=== PATIENT | female | born 1985 | race Caucasian/White ===

== ENCOUNTER → 2017-06-27 | Outpatient (CLI) | payer OTHER ==
--- NOTE | 2017-06-27 18:07 | US ---
EXAMINATION TYPE: US thyroid st tissue head/neck DATE OF EXAM: 06/27/2017 COMPARISON: 08/04/2015 CLINICAL HISTORY: E04.9 Thyroid Enlargement. GLAND SIZE: Right Lobe: 6.3 x 1.8 x 2.2 cm Overall Parenchyma: homogenous Left Lobe: 5.6 x 1.2 x 2.1 cm Overall Parenchyma: homogeneous Isthmus Thickness: 0.5 cm NODULES RIGHT: # of nodules measured on right: 3 1. 1.0 X 1.0 x 0.6 cm isoechoic nodule at the upper pole with well-defined margins; . This nodule is wider than tall and shows no intranodular vascularity. Prior size: 0.7 x 0.5 x 1.1 cm 2. 0.6 X 0.6 x 0.4 cm mixed nodule at the mid/lateral pole with well-defined margins; . This nodule is wider than tall and shows no intranodular vascularity. Prior size: 0.6 x 0.4 x 0.6 cm 3. 0.6 X 0.6 x 0.5 cm isoechoic nodule at the lower pole with well-defined margins; . This nodule is wider than tall and shows no intranodular vascularity. Prior size: no prior LEFT: # of nodules measured on left: 1. 0.3 X 0.6 x 0.4 cm echogenic nodule at the medial pole with well-defined margins; . This nodul e is wider than tall and shows no intranodular vascularity. Prior size: no prior prior nodule not well defined today looks diffuse not measured ISTHMUS: # of nodules measured in the isthmus: 0 1Bilateral neck scanned, no evidence of lymphadenopathy. IMPRESSION: Findings consistent with multinodular goiter. No dominant thyroid mass. No adverse change compared to old exam overall.
== END | disposition home or self-care (01) ==
LOC: RADUSWWP 17:04
PROVIDERS: ATTEND Family Medicine
DX: E04.9 Nontoxic goiter, unspecified (principal); Z88.5 Allergy status to narcotic agent
CPT/HCPCS: 76536

== ENCOUNTER 2017-08-23 23:00 | Emergency (ER) | payer OTHER ==
[2017-08-23] MEDS ORDERED: SODIUM CHLORIDE 0.9% 1,000 ML IV STA ×2 (23:22)
[2017-08-23] MEDS ORDERED: ONDANSETRON 4 MG/2 ML VIAL IVP STA (23:40)
[2017-08-23] MEDS ORDERED: KETOROLAC 30 MG/ML 1 ML VIAL IVP STA (23:40)
[2017-08-23 23:56] LABS: Appearance,Urine Clear (Clear); Bilirubin,Urine Negative (Negative); Blood,Urine Trace (Negative); Color,Urine Yellow; Glucose,Urine (UA) Negative (Negative); Ketones,Urine Negative (Negative); Leukocyte Esterase,Urine Negative (Negative); Mucus,Urine Rare /hpf; Nitrite,Urine Negative (Negative); PH, Urine 6.5 (5.0-8.0); Protein,Urine Negative (Negative); RBC,Urine 2 /hpf (0-5); Specific Gravity,Urine 1.007 (1.001-1.035); Squamous Epithelial Cell,Urine 2 /hpf (0-4); Urobilinogen,Urine <2.0 mg/dL (<2.0); WBC,Urine 1 /hpf (0-5)
[2017-08-24 00:03] LABS: Basophils % (A) 1 %; Eosinophils % (A) 1 %; HCT 43.2 % (34.0-46.0); Lymphocytes # (A) 1.2 k/uL (1.0-4.8); Lymphocytes % (A) 37 %; MCHC 34.7 g/dL (31.0-37.0); MCV 86.5 fL (80.0-100.0); Mean Platelet Volume 8.8; Monocytes # (A) 0.2 k/uL (0-1.0); Monocytes % (A) 6 %; Neutrophils # (A) 1.7 k/uL (1.3-7.7); Neutrophils % (A) 52 %; Platelet Count 159 k/uL (150-450); RDW 12.5 % (11.5-15.5); WBC 3.2 k/uL (3.8-10.6)
[2017-08-24 00:08] LABS: ALT 30 U/L (9-52); AST 29 U/L (14-36); Albumin 4.7 g/dL (3.5-5.0); Alkaline Phosphatase 85 U/L (38-126); Amylase 56 U/L (30-110); Anion Gap 12 mmol/L; Blood Urea Nitrogen 6 mg/dL (7-17); Calcium 9.8 mg/dL (8.4-10.2); Carbon Dioxide 31 mmol/L (22-30); Chloride 96 mmol/L (98-107); Glucose 105 mg/dL (74-99); Lipase 97 U/L (23-300); Potassium 3.3 mmol/L (3.5-5.1); Sodium 139 mmol/L (137-145); Total Bilirubin 0.4 mg/dL (0.2-1.3)
[2017-08-24 00:46] LABS: HCG,Qualitative Serum Not Detected
--- NOTE | 2017-08-24 01:14 | XR ---
EXAMINATION TYPE: XR KUB DATE OF EXAM: 08/24/2017 COMPARISON: 06/04/2011 HISTORY: Pain TECHNIQUE: 2 views FINDINGS: There is no sign of intestinal obstruction or pneumoperitoneum. Fecal pattern is normal. Leta ng bases are clear. There are no pathologic calcification. IMPRESSION: Nonacute abdomen. No change.
[2017-08-24] MEDS ORDERED: RX INFO: IV CONTRAST WAS GIVEN 1 EACH MISC MISCELLANE PRN (01:23)
--- NOTE | 2017-08-24 02:03 | ED ---
Abdominal Pain HPI - General Chief Complaint: Abdominal Pain Stated Complaint: Abd/Back Pain Time Seen by Provider: 08/23/17 23:10 Source: patient, RN notes reviewed, old records reviewed Mode of arrival: ambulatory Limitations: no limitations - History of Present Illness Initial Comments: 32-year-old feel presents a history of multiple days of diarrhea, right lower quadrant abdominal pain, fever or chills. She also reports that the pain rates towards her back. Denies chest pain or shortness of breath. No nausea or vomiting. She denies any abnormal vaginal bleeding. Denies any dysuria or hematuria. She states that she initially thought she may have had a urinary tract infection, and she took at home her analysis which was negative. - Related Data Home Medications Medication Instructions Recorded Confirmed Aspirin/Acetaminophen/Caffeine 1 - 2 tab PO Q6H PRN 08/23/17 08/23/17 [Excedrin Migraine Caplet] Previous Rx's Medication Instructions Recorded Loperamide [Imodium] 2 mg PO QID #15 capsule 08/24/17 Ondansetron Odt [Zofran Odt] 4 mg PO Q8HR PRN #15 tab 08/24/17 Allergies Allergy/AdvReac Type Severity Reaction Status Date / Time meperidine HCl [From Demerol] Allergy Vomiting Verified 08/23/17 23:14 Review of Systems ROS Statement: Those systems with pertinent positive or pertinent negative responses have been documented in the HPI. ROS Other: All systems not noted in ROS Statement are negative. Past Medical History Past Medical History: No Reported History Additional Past Medical History / Comment(s): migraines History of Any Multi-Drug Resistant Organisms: None Reported Past Surgical History: Section, Orthopedic Surgery Additional Past Surgical History / Comment(s): surgery lt ankle, wisdom teeth, cyst removal. Past Anesthesia/Blood Transfusion Reactions: No Reported Reaction Past Psychological History: Anxiety Smoking Status: Current every day smoker Past Alcohol Use History: Occasional Past Drug Use History: None Reported - Past Family History Brother(s) Family Medical History: Cancer, Thyroid Disorder Additional Family Medical History / Comment(s): testicular Mother Family Medical History: Diabetes Mellitus, Thyroid Disorder General Exam - General Exam Comments Initial Comments: 32-year-old female. No acute distress. Limitations: no limitations General appearance: alert, in no apparent distress Head exam: Present: atraumatic, normocephalic, normal inspection Eye exam: Present: normal appearance, PERRL, EOMI. Absent: scleral icterus, conjunctival injection, periorbital swelling ENT exam: Present: normal exam, mucous membranes moist Neck exam: Present: normal inspection. Absent: tenderness, meningismus, lymphadenopathy Respiratory exam: Present: normal lung sounds bilaterally. Absent: respiratory distress, wheezes, rales, rhonchi, stridor Cardiovascular Exam: Present: regular rate, normal rhythm, normal heart sounds. Absent: systolic murmur, diastolic murmur, rubs, gallop, clicks GI/Abdominal exam: Present: soft, tenderness (Right lower quadrant tenderness), normal bowel sounds. Absent: distended, guarding, rebound, rigid Extremities exam: Present: normal inspection, full ROM, normal capillary refill. Absent: tenderness, pedal edema, joint swelling, calf tenderness Back exam: Present: normal inspection Neurological exam: Present: alert, oriented X3, CN II-XII intact Psychiatric exam: Present: normal affect, normal mood Course Vital Signs 08/23/17 08/24/17 23:03 03:22 Temperature 98.3 F 98 F Pulse Rate 93 86 Respiratory 18 20 Rate Blood Pressure 135/87 116/77 O2 Sat by Pulse 100 98 Oximetry Medical Decision Making - Medical Decision Making This patient is a 32-year-old female chief complaint of right lower quadrant abdominal pain, diarrhea. She states she's also had fevers and chills. No fever at this time. Patient is given IV fluids and lab work obtained. Patient' s labwork was reviewed and unremarkable. Given her tenderness we did do a CT. CT was negative for any significant abnormalities. Normal appendix. She does have a left ovarian cyst. This. Tylenol. The patient for gastroenteritis symptoms. Discharged with antidiarrheal medication and nausea medicine. Patient understands treatment plan will comply. Return parameters were discussed. - Lab Data Result diagrams: 08/23/17 23:35 08/23/17 23:35 Lab Results 08/23/17 08/23/17 08/23/17 Range/Units 23:35 23:35 23:35 WBC 3.2 L (3.8-10.6) k/uL RBC 5.00 (3.80-5.40) m/uL Hgb 15.0 (11.4-16.0) gm/dL Hct 43.2 (34.0-46.0) % MCV 86.5 (80.0-100.0) fL MCH 30.0 (25.0-35.0) pg MCHC 34.7 (31.0-37.0) g/dL RDW 12.5 (11.5-15.5) % Plt Count 159 (150-450) k/uL Neutrophils % 52 % Lymphocytes % 37 % Monocytes % 6 % Eosinophils % 1 % Basophils % 1 % Neutrophils # 1.7 (1.3-7.7) k/uL Lymphocytes # 1.2 (1.0-4.8) k/uL Monocytes # 0.2 (0-1.0) k/uL Eosinophils # 0.0 (0-0.7) k/uL Basophils # 0.0 (0-0.2) k/uL Sodium 139 (137-145) mmol/L Potassium 3.3 L (3.5-5.1) mmol/L Chloride 96 L (98-107) mmol/L Carbon Dioxide 31 H (22-30) mmol/L Anion Gap 12 mmol/L BUN 6 L (7-17) mg/dL Creatinine 0.70 (0.52-1.04) mg/dL Est GFR (CKD-EPI)AfAm >90 (>60 ml/min/1.73 sqM) Est GFR (CKD-EPI)NonAf >90 (>60 ml/min/1.73 sqM) Glucose 105 H (74-99) mg/dL Calcium 9.8 (8.4-10.2) mg/dL Total Bilirubin 0.4 (0.2-1.3) mg/dL AST 29 (14-36) U/L ALT 30 (9-52) U/L Alkaline Phosphatase 85 (38-126) U/L Total Protein 8.0 (6.3-8.2) g/dL Albumin 4.7 (3.5-5.0) g/dL Amylase 56 (30-110) U/L Lipase 97 (23-300) U/L HCG, Qual Not Detected Urine Color Yellow Urine Appearance Clear (Clear) Urine pH 6.5 (5.0-8.0) Ur Specific [place] 1.007 (1.001-1.035) Urine Protein Negative (Negative) Urine Glucose (UA) Negative (Negative) Urine Ketones Negative (Negative) Urine Blood Trace H (Negative) Urine Nitrite Negative (Negative) Urine Bilirubin Negative (Negative) Urine Urobilinogen <2.0 (<2.0) mg/dL Ur Leukocyte Esterase Negative (Negative) Urine RBC 2 (0-5) /hpf Urine WBC 1 (0-5) /hpf Ur Squamous Epith Cells 2 (0-4) /hpf Urine Mucus Rare H (None) /hpf - Radiology Data Radiology results: report reviewed CT shows evidence of a left ovarian cyst. Otherwise negative computed tomography scan of the abdomen and pelvis. Borderline splenomegaly. Normal appendix noted. This was read by Dr. Youssef. Disposition Clinical Impression: Left ovarian cyst, Diarrhea Disposition: HOME SELF-CARE Condition: Good Instructions: Ovarian Cyst (ED) Additional Instructions: Patient advised to follow-up with primary care provider. Return to the emergency department if any alarming signs or symptoms occur. Prescriptions: Loperamide [Imodium] 2 mg PO QID #15 capsule Ondansetron Odt [Zofran Odt] 4 mg PO Q8HR PRN #15 tab PRN Reason: Nausea Referrals: Sunny Quintero MD [Primary Care Provider] - 1-2 days Time of Disposition: 02:53
--- NOTE | 2017-08-24 02:22 | CT ---
EXAMINATION TYPE: CT abdomen pelvis w con DATE OF EXAM: 08/24/2017 COMPARISON: NONE HISTORY: abdomen and back pain CT DLP: [id number] mGycm Automated exposure control for dose reduction was used. TECHNIQUE: Helical acquisition of images was performed from the lung bases through the pelvis. CONTRAST: Performed without Oral Contrast and with IV Contrast, patient injected with 100 mL of Isovue 300. FINDINGS: Lung bases are clear. There is no pleural effusion. Heart size is normal. Liver appears normal. Bile ducts are not dilated. Gallbladder appears normal. There is no pancreatic mass. Spleen is top normal in size. There is no adrenal mass. Kidneys show satisfactory contrast opacification. There is no hydronephrosi s. There is no retroperitoneal adenopathy. There is no ascites. Appendix appears normal. There is a 2 cm cyst on the left ovary. Uterus is anteverted. There is no sign of free air. There is no ascites. The bony structures are intact. I see no intestinal wall thickening. There are no dilated loops. IMPRESSION: LEFT OVARIAN CYST. OTHERWISE NEGATIVE CT SCAN OF THE ABDOMEN AND PELVIS. BORDERLINE SPLENOMEGALY. NOR MAL APPENDIX.
[2017-08-24] MEDS ORDERED: ACET/COD 300 MG/30 MG STARTER PACK 6 TAB BTL PO STA (02:56)
[2017-08-24 03:24] VITALS: BP 116/77; PULSE 86; RESP 20; TEMP 98
== END 2017-08-24 03:24 | disposition home or self-care (01) ==
LOC: EC 23:00
DX: N83.202 Unspecified ovarian cyst, left side (principal); R19.7 Diarrhea, unspecified; F17.200 Nicotine dependence, unspecified, uncomplicated; Z88.5 Allergy status to narcotic agent
CPT/HCPCS: 36415; 80053; 82150; 83690; 85025; 81001; 84703; 74018; 74177; 99285; 96374; 96375; 96361 ×4; J2405; J1885; Q9967

== ENCOUNTER → 2017-09-04 | Outpatient (CLI) | payer OTHER ==
--- NOTE | 2017-09-05 09:42 | NM ---
EXAMINATION TYPE: NM thyroid image w uptake DATE OF EXAM: 09/05/2017 COMPARISON: Thyroid ultrasound 06/27/2017 HISTORY: 32-year-old female with thyroid nodule. Patient reports various symptoms including thyroid s welling, sweating, or changes, decreased appetite and weight, irritability, fatigue, and palpitations . TECHNIQUE: Thyroid iodine uptake is calculated and images performed after the oral administration of 309 uCi 1-123 Capsule. FINDINGS: There is a subtle cold defect along the upper pole of the right thyroid lobe at the expected location of the patient's 1.0 cm nodule seen on ultrasound. Otherwise, there is normal distribution of activity throughout the gland. The 4 hour iodine uptake is calculated at 15.2% (normal range 8-14%). The 24-hour iodine uptake is ca lculated at 38.1% (normal range 15-35%). IMPRESSION: 1. Aside from a subtle cold nodule in the right upper pole, there is relatively homogeneous distribut ion of activity throughout the gland. There is no focal hyperfunctioning nodule. 2. Mildly elevated iodine uptake suggests hyperthyroidism. Correlate with TFTs.
== END | disposition home or self-care (01) ==
LOC: RADNMMAIN 08:55
PROVIDERS: ATTEND Family Medicine
DX: E04.1 Nontoxic single thyroid nodule (principal); Z88.5 Allergy status to narcotic agent
CPT/HCPCS: 78014; A9516

== ENCOUNTER → 2017-09-05 | Outpatient (CLI) | payer OTHER ==
--- NOTE | 2017-09-05 10:43 | US ---
EXAMINATION TYPE: US gallbladder DATE OF EXAM: 09/05/2017 COMPARISON: CT abdomen pelvis August 24, 2017. CLINICAL HISTORY: R10.11 Ruq Pain, R19.7 Diarrhea. 20 pound weight loss, no appetite EXAM MEASUREMENTS: Liver Length: 17.3 cm Gallbladder Wall: 0.1 cm CBD: 0.3 cm Right Kidney: 12.2 x 4.0 x 5.5 cm Pancreas: head Obscured by bowel gas Liver: wnl Gallbladder: No stones seen, contracted Evidence for sonographic Hollins's sign: no CBD: wnl Right Kidney: No hydronephrosis or masses seen IMPRESSION: No gallstones or ultrasound evidence for acute cholecystitis.
== END | disposition home or self-care (01) ==
LOC: RADUSMAIN 07:48
PROVIDERS: ATTEND Family Medicine
DX: R19.7 Diarrhea, unspecified (principal); R10.11 Right upper quadrant pain; Z88.5 Allergy status to narcotic agent
CPT/HCPCS: 76705

== ENCOUNTER → 2017-09-09 | Outpatient (CLI) | payer OTHER ==
--- NOTE | 2017-09-09 09:40 | FL ---
EXAMINATION TYPE: FL UGI air w small bowel DATE OF EXAM: 09/09/2017 COMPARISON: 08/24/2018 HISTORY: Unexplained weight loss and diarrhea. TECHNIQUE: A double contrast UGI study is performed with small bowel follow through. FLUORO TIME 3 M IN 25. 61 fluoroscopic images were saved. FINDINGS: Procedures Rn image of the abdomen shows no gross abnormality. The esophagus shows normal motility and emptying into the stomach. No evidence of hiatal hernia or s tricture noted. The stomach shows normal distensibility, peristalsis, and mucosal folds. No evidence of any mass or ulcer disease. No significant esophageal reflux was seen during real time performance of this study. The duodenal bulb and sweep are unremarkable. The small bowel study shows decreased transit to the colon in less than 20 minutes. There is normal mucosal fold pattern throughout the small bowel. There is no evidence of any stricture or filling de fect noted. The terminal ileum is unremarkable. IMPRESSION: 1. Decreased small bowel to colonic transit time with contrast reaching the colon in less than 20 min utes suggesting hyperactive motility disorder. 2. Unremarkable upper GI portion of the examination with no evidence of hiatal hernia, stricture, ulc eration, or gastroesophageal reflux. 3. No evidence of reversal of small bowel fold pattern or obstruction.
== END | disposition home or self-care (01) ==
LOC: RADFLMAIN 08:00
PROVIDERS: ATTEND Family Medicine
DX: R19.7 Diarrhea, unspecified (principal); R93.3 Abnormal findings on diagnostic imaging of other parts of digestive tract; R10.84 Generalized abdominal pain; Z88.8 Allergy status to other drugs, medicaments and biological substances
CPT/HCPCS: 74249

== ENCOUNTER → 2017-10-24 | Outpatient (CLI) | payer OTHER ==
--- NOTE | 2017-10-24 15:34 | US ---
EXAMINATION TYPE: US pelvic complete DATE OF EXAM: 10/24/2017 COMPARISON: CT abdomen and pelvis August 24, 2017 and US CLINICAL HISTORY: N92.0 Menorrhagia. Pt states very heavy menses x 1 1/2 years TECHNIQUE: Transabdominal (TA). Date of LMP: 10/12/2017 EXAM MEASUREMENTS: Uterus: 8.8 x 3.6 x 4.4 cm Endometrial Stripe: 1.0 cm Right Ovary: 3.5 x 3.2 x 4.0 cm Left Ovary: 2.2 x 1.9 x 2.0 cm 1. Uterus: Anteverted Heterogeneous 2. Endometrium: ?thickened for pt's cycle 3. Right Ovary: Cyst with septation= 2.7 x 2.7 x 2.0 cm 4. Left Ovary: wnl 5. Bilateral Adnexa: wnl 6. Posterior cul-de-sac: wnl Transabdominal ultrasound shows endometrium measuring up to 10 mm, thickened for proliferative phase of menstrual cycle. Technologist llamas 2.7 cm cyst with thin septa within the right ovary. No suspici ous nodularity or vascularity is present. IMPRESSION: Suboptimal study without transvaginal pelvic ultrasound performed. Endometrial stripe is abnormally thickened for proliferative phase of menstrual cycle.
== END | disposition home or self-care (01) ==
LOC: RADUSWWP 15:06
PROVIDERS: ATTEND Obstetrics & Gynecology
DX: R92.8 Other abnormal and inconclusive findings on diagnostic imaging of breast (principal); N92.0 Excessive and frequent menstruation with regular cycle
CPT/HCPCS: 76856

== ENCOUNTER 2017-11-28 06:12 | Day surgery (SDC) | payer OTHER ==
[2017-11-27 08:18] VITALS: BMI 21.1
--- NOTE | 2017-11-27 19:58 | P.HPOB ---
History of Present Illness H&P Date: 11/27/17 Chief Complaint: Menorrhagia This is a 32-year-old female 4 para 3 who presents for dilation and curettage with hysteroscopy and NovaSure endometrial ablation for menorrhagia. Her menses are occurring every 28 days and lasting 10-14 days. She has to change a tampon every hour for the first 4 days. She would like definitive surgical treatment to control her bleeding problem. She has had a tubal ligation. Obstetrical history: . History of 3 deliveries. One miscarriage. Gynecologic history: No history of sexual transmitted diseases. 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 Review of Systems Constitutional: Reports fatigue, Denies chills, Denies fever Eyes: denies blurred vision, denies pain Ears, nose, mouth and throat: Denies headache, Denies sore throat Cardiovascular: Denies chest pain, Denies shortness of breath Respiratory: Denies cough Gastrointestinal: Reports abdominal pain, Reports diarrhea Genitourinary: Reports menorrhagia Menstruation: Reports menses variable, Reports period heavy Musculoskeletal: Denies myalgias Integumentary: Denies pruritus, Denies rash Neurological: Reports headaches Psychiatric: Reports anxiety, Reports irritability, Reports mood swings Endocrine: Denies fatigue Past Medical History Additional Past Medical History / Comment(s): migraines, IBS, thyroid multinodular goiter, euthyroid History of Any Multi-Drug Resistant Organisms: None Reported Past Surgical History: Section, Orthopedic Surgery, Tubal Ligation Additional Past Surgical History / Comment(s): surgery lt ankle, wisdom teeth, lt wrist cyst removal. colonoscopy Past Anesthesia/Blood Transfusion Reactions: No Reported Reaction Past Psychological History: Anxiety Smoking Status: Current every day smoker Past Alcohol Use History: Occasional Past Drug Use History: None Reported - Past Family History Brother(s) Family Medical History: Cancer, Thyroid Disorder Additional Family Medical History / Comment(s): testicular Mother Family Medical History: Diabetes Mellitus, Thyroid Disorder Medications and Allergies Home Medications Medication Instructions Recorded Confirmed Type Dicyclomine [Bentyl] 10 mg PO QID PRN 11/27/17 11/27/17 History FLUoxetine HCL [PROzac] 10 mg PO QAM 11/27/17 11/27/17 History Allergies Allergy/AdvReac Type Severity Reaction Status Date / Time meperidine HCl [From Demerol] Allergy Vomiting Verified 11/27/17 08:09 Exam Osteopathic Statement: *. No significant issues noted on an osteopathic structural exam other than those noted in the History and Physical/Consult. - Vital Signs Vital signs: Intake and Output 11/27/17 11/27/17 11/27/17 06:59 14:59 22:59 Other: Weight 59.421 kg HEENT: Within normal limits Heart: Regular rate and rhythm Lungs: Clear to auscultation bilaterally Abdomen: Soft, nontender Pelvic exam: Cervix is multiparous. Uterus is retroverted with first-degree prolapse and no adnexal masses are palpated. Extremities: Negative Homans Assessment and Plan (1) Menorrhagia Status: Acute Code(s): N92.0 - EXCESSIVE AND FREQUENT MENSTRUATION WITH REGULAR CYCLE SNOMED Code(s): 584830514 Plan: Proceed with dilation and curettage and hysteroscopy with NovaSure endometrial ablation. I have discussed the risks, benefits, and alternative therapies for the above- mentioned procedure and for both sedation/anesthesia as well as necessary blood products administration, if indicated, as they pertain to this patient. The patient has indicated her understanding and acceptance of the risks and procedures discussed.
[~2017-11-28 06:12] MED LIST: DEXAMETHASONE SOD PHOSPHATE 10 MG/ML 1 ML VIAL IV ONE; LACTATED RINGERS 1,000 ML IV SCH; ONDANSETRON 4 MG/2 ML VIAL IVP ONE
[2017-11-28] MEDS ORDERED: LIDOCAINE 1% 20 ML VIAL (10MG/ML) FOR IV START INTRADERMA ONE (06:55)
[2017-11-28] MEDS ORDERED: ONDANSETRON 4 MG/2 ML VIAL ONE (06:57)
[2017-11-28] MEDS ORDERED: DEXAMETHASONE SOD PHOSPHATE 10 MG/ML 1 ML VIAL IV ONE (07:01)
[2017-11-28] MEDS ORDERED: PROPOFOL 10 MG/ML 20 ML VIAL IV ONE (07:35)
[2017-11-28] MEDS ORDERED: LIDOCAINE 1% INJ 10MG/ML (20 ML MDV) ONE (07:35)
[2017-11-28] MEDS ORDERED: GLYCOPYRROLATE 0.2 MG/ML 2 ML VIAL ONE (07:35)
[2017-11-28] MEDS ORDERED: fentaNYL (PF) 50 MCG/ML 2 ML AMP ONE (07:35)
[2017-11-28] MEDS ORDERED: KETOROLAC 30 MG/ML 1 ML VIAL ONE (07:35)
[2017-11-28] MEDS ORDERED: MIDAZOLAM 2 MG/2 ML VIAL ONE (07:35)
--- NOTE | 2017-11-28 08:02 | P.OP ---
Date of Procedure: 11/28/17 Preoperative Diagnosis: Menorrhagia Postoperative Diagnosis: Same Procedure(s) Performed: Dilation and curettage with hysteroscopy and NovaSure endometrial ablation Anesthesia: other (Mask general) Surgeon: Cori Ritter Estimated Blood Loss (ml): 5 Pathology: other (Endometrial curettings) Condition: stable Disposition: same day Indications for Procedure: This is a 32-year-old female 4 para 3 who presents for dilation and curettage with hysteroscopy and NovaSure endometrial ablation for menorrhagia. Her menses are occurring every 28 days and lasting 10-14 days. She has to change a tampon every hour for the first 4 days. She would like definitive surgical treatment to control her bleeding problem. She has had a tubal ligation. Operative Findings: Uterus is mid position and sounded to 9 cm. Cervix is sounded to 3 cm. Upon hysteroscopy a dyssynchronous endometrial pattern is noted. Both tubal ostia are visualized. A minimal to moderate amount of endometrial curettings are obtained. Description of Procedure: The patient is taken to the operating room. She is placed in the dorsal lithotomy position after general anesthesia was given. She is prepped and draped in the normal sterile fashion. Bladder is drained with a catheter and then removed. Pelvic exam is performed under anesthesia. Uterus is found to be mid position with no adnexal masses. She is placed in slight Trendelenburg position. A right angle retractor is used to visualize the cervix. The anterior lip of the cervix is grasped with a single-tooth tenaculum. Cervix is sounded to 3 cm. Uterus is sounded to 9 cm. Cervix is gently dilated with Moreno dilators until a hysteroscope could be passed. Hysteroscopy is performed using normal saline. The above noted findings are noted. Next a polyp forceps is introduced. A moderate amount of tissue was obtained. Next medium-sized size sharp curette was placed. A minimal to moderate amount of endometrial curettings were obtained. Next NovaSure array was inserted into the endometrial cavity. Length was set at 6 cm and width was determined to be 3.4 cm. Next cavity assessment was completed and passed on the first try. Next NovaSure array was fired at 112 W for 58 seconds. Next the array was removed, inspected and then discarded. Next the hysteroscope was reinserted. Uniform charring was noted. Pictures were taken. Hysteroscope was removed. Single- tooth tenaculum was removed from the anterior lip of the cervix. Minimal bleeding was noted. All other instruments removed from the vagina. Sponge counts were correct. Patient is taken to recovery room in stable condition.
[2017-11-28 08:34] VITALS: TEMP 98
[2017-11-28 08:37] VITALS: RESP 18
[2017-11-28] MEDS: HYDROmorphone 0.5 MG/0.5 ML SYRINGE IVP PRN ×2 (08:45→08:50)
[2017-11-28 09:19] VITALS: BP 108/73; PULSE 73
== END 2017-11-28 10:12 | disposition home or self-care (01) ==
LOC: OR 06:12
PROVIDERS: ATTEND Obstetrics & Gynecology
DX: N92.0 Excessive and frequent menstruation with regular cycle (principal); K21.9 Gastro-esophageal reflux disease without esophagitis; F41.9 Anxiety disorder, unspecified; F17.200 Nicotine dependence, unspecified, uncomplicated; Z98.51 Tubal ligation status; Z88.5 Allergy status to narcotic agent; Z79.899 Other long term (current) drug therapy
CPT/HCPCS: 81025; 88305; 58563; J2250; J1100; J2405; J2001; J3010; J1885; J2704; J1170

== ENCOUNTER 2017-11-28 10:46 | Emergency (ER) | payer OTHER ==
[2017-11-28 10:57] VITALS: BP 129/72; PULSE 93; RESP 16; TEMP 98.1
[2017-11-28] MEDS ORDERED: ONDANSETRON 4 MG/2 ML VIAL IVP STA (11:06)
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
== END 2017-11-28 11:40 | disposition home or self-care (01) ==
LOC: EC 10:46
DX: S00.83XA Contusion of other part of head, initial encounter (principal); R10.9 Unspecified abdominal pain; R11.0 Nausea; F41.9 Anxiety disorder, unspecified; F17.200 Nicotine dependence, unspecified, uncomplicated; Z79.899 Other long term (current) drug therapy; Z88.5 Allergy status to narcotic agent; Z98.890 Other specified postprocedural states; V49.50XA Passenger injured in collision with unspecified motor vehicles in traffic accident, initial encounter; Y92.410 Unspecified street and highway as the place of occurrence of the external cause
CPT/HCPCS: 99284; 96374; J2405

== ENCOUNTER 2019-08-18 15:59 | Emergency (ER) | payer OTHER ==
[2019-08-18 16:33] VITALS: TEMP 98
[2019-08-18] MEDS ORDERED: ONDANSETRON 4 MG/2 ML VIAL IVP STA (17:11)
[2019-08-18] MEDS ORDERED: SODIUM CHLORIDE 0.9% 1,000 ML IV STA (17:11)
--- NOTE | 2019-08-18 18:17 | ED ---
Nausea/Vomiting/Diarrhea HPI - General Chief complaint: Nausea/Vomiting/Diarrhea Stated complaint: vomiting Time Seen by Provider: 08/18/19 16:58 Source: patient Mode of arrival: wheelchair Limitations: no limitations - History of Present Illness Initial comments: Patient is a 34-year-old female, with history of anxiety, presenting to the emergency department complaints of nausea and vomiting 2 days. Patient states she's also been having intermittent diarrhea. She admits to abdominal cramping but no severe pains. She admits to history of C-sections, no other abdominal surgeries. She denies fever, chills, chest pain, shortness of breath. She denies any recent travel or antibiotic use. She has no other complaints at this time. Upon arrival to the ER, patient was slightly tachycardia at 102, rest of vitals are normal. - Related Data Home Medications Medication Instructions Recorded Confirmed Dicyclomine [Bentyl] 10 mg PO QID PRN 11/27/17 11/28/17 RX: FLUoxetine HCL [PROzac] 10 mg PO QAM 11/27/17 11/28/17 Previous Rx's Medication Instructions Recorded Ondansetron Odt [Zofran Odt] 4 mg PO Q8HR PRN #10 tab 08/18/19 Allergies Allergy/AdvReac Type Severity Reaction Status Date / Time meperidine HCl [From Demerol] Allergy Vomiting Verified 08/18/19 16:33 Review of Systems ROS Statement: Those systems with pertinent positive or pertinent negative responses have been documented in the HPI. ROS Other: All systems not noted in ROS Statement are negative. Past Medical History Past Medical History: Thyroid Disorder Additional Past Medical History / Comment(s): migraines, IBS, thyroid multino dular goiter, euthyroid History of Any Multi-Drug Resistant Organisms: None Reported Past Surgical History: Section, Orthopedic Surgery, Tubal Ligation, Uterine Ablation Additional Past Surgical History / Comment(s): surgery lt ankle, wisdom teeth,lt wrist cyst removal. colonoscopy Past Anesthesia/Blood Transfusion Reactions: No Reported Reaction Past Psychological History: Anxiety Smoking Status: Former smoker Past Alcohol Use History: Occasional Past Drug Use History: Marijuana - Past Family History Brother(s) Family Medical History: Cancer, Thyroid Disorder Additional Family Medical History / Comment(s): testicular Mother Family Medical History: Diabetes Mellitus, Thyroid Disorder General Exam - General Exam Comments Initial Comments: GENERAL: Patient appears fatigued, in no acute distress. HEAD: Atraumatic, normocephalic. EYES: Pupils equal round and reactive to light, extraocular movements intact, sclera anicteric, conjunctiva are normal. ENT: TMs normal, nares patent, oropharynx clear without exudates. Dry mucous membranes. NECK: Normal range of motion, supple without lymphadenopathy or JVD. LUNGS: Breath sounds clear to auscultation bilaterally and equal. No wheezes rales or rhonchi. HEART: Slightly tachycardia rate and rhythm without murmurs, rubs or gallops. ABDOMEN: Soft, nontender, normoactive bowel sounds. No guarding, no rebound. No masses appreciated. : Deferred EXTREMITIES: Normal range of motion, no pitting or edema. No clubbing or cyanosis. NEUROLOGICAL: Cranial nerves II through XII grossly intact. Normal speech, normal gait. PSYCH: Normal mood, normal affect. SKIN: Warm, Dry, normal turgor, no rashes or lesions noted. Limitations: no limitations Course Vital Signs 08/18/19 16:30 Temperature 98.0 F Pulse Rate 102 H Respiratory 20 Rate Blood Pressure 136/82 O2 Sat by Pulse 98 Oximetry Medical Decision Making - Medical Decision Making Patient is a 34-year-old female presenting with nausea, vomiting, diarrhea 2 days. Slightly tachycardia on arrival, afebrile. Exam is unremarkable, no abdominal pain. Patient did appear dehydrated. Patient was given a liter and a half of fluids as well as Zofran and Reglan. Patient started becoming very anxious and requesting medicine for anxiety. Patient states he used to be on medicine 2 months ago. Patient was given 1 of Ativan. She reports improvement in her symptoms. She feels like she can go home. Patient will be sent home with Zofran for additional nausea. I discussed with patient this is most likely viral in nature. She can continue to increase fluid intake at home with small sips, more frequently. She is in agreement with this plan of care. Return para meters were discussed with the patient she verbalized understanding. Case discussed with Dr. Kwan. - Lab Data Result diagrams: 08/18/19 17:55 08/18/19 17:55 Lab Results 08/18/19 08/18/19 Range/Units 17:55 17:55 WBC 14.1 H (3.8-10.6) k/uL RBC 4.27 (3.80-5.40) m/uL Hgb 13.3 (11.4-16.0) gm/dL Hct 40.0 (34.0-46.0) % MCV 93.7 (80.0-100.0) fL MCH 31.3 (25.0-35.0) pg MCHC 33.4 (31.0-37.0) g/dL RDW 11.9 (11.5-15.5) % Plt Count 220 (150-450) k/uL Neutrophils % 90 % Lymphocytes % 7 % Monocytes % 3 % Eosinophils % 0 % Basophils % 0 % Neutrophils # 12.6 H (1.3-7.7) k/uL Lymphocytes # 1.0 (1.0-4.8) k/uL Monocytes # 0.4 (0-1.0) k/uL Eosinophils # 0.0 (0-0.7) k/uL Basophils # 0.0 (0-0.2) k/uL Sodium 138 (137-145) mmol/L Potassium 3.2 L (3.5-5.1) mmol/L Chloride 99 (98-107) mmol/L Carbon Dioxide 26 (22-30) mmol/L Anion Gap 13 mmol/L BUN 12 (7-17) mg/dL Creatinine 0.70 (0.52-1.04) mg/dL Est GFR (CKD-EPI)AfAm >90 (>60 ml/min/1.73 sqM) Est GFR (CKD-EPI)NonAf >90 (>60 ml/min/1.73 sqM) Glucose 105 H (74-99) mg/dL Calcium 10.3 H (8.4-10.2) mg/dL Total Bilirubin 0.5 (0.2-1.3) mg/dL AST 19 (14-36) U/L ALT 11 (4-34) U/L Alkaline Phosphatase 62 (38-126) U/L Total Protein 8.1 (6.3-8.2) g/dL Albumin 5.1 H (3.5-5.0) g/dL Disposition Clinical Impression: Dehydration, Nausea vomiting and diarrhea, Gastroenteritis, Anxiety Disposition: HOME SELF-CARE Condition: Stable Instructions (If sedation given, give patient instructions): Acute Nausea and Vomiting (ED) Additional Instructions: Please return to the Emergency Department if symptoms worsen or any other con cerns. Take Zofran as needed for continued nausea. Follow-up with PCP. Prescriptions: Ondansetron Odt [Zofran Odt] 4 mg PO Q8HR PRN #10 tab PRN Reason: Nausea Is patient prescribed a controlled substance at d/c from ED?: No Referrals: Sunny Quintero MD [Primary Care Provider] - 1-2 days
[2019-08-18 18:22] LABS: Basophils % (A) 0 %; Eosinophils % (A) 0 %; HGB 13.3 gm/dL (11.4-16.0); Lymphocytes % (A) 7 %; MCH 31.3 pg (25.0-35.0); MCHC 33.4 g/dL (31.0-37.0); MCV 93.7 fL (80.0-100.0); Mean Platelet Volume 9.3; Monocytes # (A) 0.4 k/uL (0-1.0); Monocytes % (A) 3 %; Neutrophils # (A) 12.6 k/uL (1.3-7.7); Neutrophils % (A) 90 %; Platelet Count 220 k/uL (150-450); RBC 4.27 m/uL (3.80-5.40); RDW 11.9 % (11.5-15.5); WBC 14.1 k/uL (3.8-10.6)
[2019-08-18 18:25] LABS: ALT 11 U/L (4-34); AST 19 U/L (14-36); African American GFR (CKD) >90 (>60 ml/min/1.73 sqM); Albumin 5.1 g/dL (3.5-5.0); Alkaline Phosphatase 62 U/L (38-126); Anion Gap 13 mmol/L; Blood Urea Nitrogen 12 mg/dL (7-17); Calcium 10.3 mg/dL (8.4-10.2); Carbon Dioxide 26 mmol/L (22-30); Chloride 99 mmol/L (98-107); Glucose 105 mg/dL (74-99); Non-African American GFR(CKD) >90 (>60 ml/min/1.73 sqM); Potassium 3.2 mmol/L (3.5-5.1); Sodium 138 mmol/L (137-145); Total Bilirubin 0.5 mg/dL (0.2-1.3); Total Protein 8.1 g/dL (6.3-8.2)
[2019-08-18] MEDS ORDERED: METOCLOPRAMIDE 5 MG/ML 2 ML VIAL IVP STA (18:36)
[2019-08-18] MEDS ORDERED: SODIUM CHLORIDE 0.9% 500 ML 500 ML IV STA (18:36)
[2019-08-18] MEDS ORDERED: LORazepam 2 MG/ML INJ IV STA (19:21)
[2019-08-18 20:32] VITALS: BP 97/45; PULSE 97; RESP 16
[2019-08-18 20:52] LABS: Appearance,Urine Cloudy (Clear); Bilirubin,Urine Negative (Negative); Blood,Urine Small (Negative); Color,Urine Yellow; Glucose,Urine (UA) Negative (Negative); Ketones,Urine 4+ (Negative); Leukocyte Esterase,Urine Negative (Negative); Mucus,Urine Many /hpf; Nitrite,Urine Negative (Negative); Protein,Urine 1+ (Negative); RBC,Urine 4 /hpf (0-5); Specific Gravity,Urine 1.033 (1.001-1.035); Squamous Epithelial Cell,Urine 3 /hpf (0-4); WBC,Urine 2 /hpf (0-5)
== END 2019-08-18 20:31 | disposition home or self-care (01) ==
LOC: EC 15:59
DX: K52.9 Noninfective gastroenteritis and colitis, unspecified (principal); E86.0 Dehydration; F41.9 Anxiety disorder, unspecified; R00.0 Tachycardia, unspecified; Z79.899 Other long term (current) drug therapy; Z88.5 Allergy status to narcotic agent; Z87.891 Personal history of nicotine dependence
CPT/HCPCS: 36415; 80053; 85025; 81001; 99284; 96374; 96375 ×2; 96361 ×2; J2060; J2765; J2405

== ENCOUNTER 2019-11-20 06:14 | Emergency (ER) | payer OTHER ==
[2019-11-20 06:22] VITALS: RESP 18; TEMP 98.1
[2019-11-20] MEDS ORDERED: SODIUM CHLORIDE 0.9% 500 ML 500 ML IV STA (06:26)
[2019-11-20] MEDS ORDERED: ONDANSETRON 4 MG/2 ML VIAL IVP STA (06:45)
[2019-11-20] MEDS ORDERED: LORazepam 2 MG/ML INJ IV STA ×2 (06:45→07:36)
--- NOTE | 2019-11-20 06:48 | ED ---
Arrhythmia/Palpitations HPI - General Chief Complaint: Arrhythmia/Palpitations Stated Complaint: rapid heart rate Time Seen by Provider: 11/20/19 06:26 Source: patient, RN notes reviewed Mode of arrival: ambulatory Limitations: no limitations - History of Present Illness Initial Comments: 34-year-old female presents emergency Department chief complaint of palpitations. Patient states his heart was racing and pounding out of her chest. She states she has no pain associated with shortness of breath. She hashad some nausea and vomiting. She states all started after she stopped "dabbing". She states that she tried stopping several times prior to this and states that she started getting symptoms but states that she just use again. Patient states that she is not using 2 days and no symptoms are unbearable. Patient states she did telemed appointment with Dr. Quintero who prescribed her some Xanax. She states that it's very low dose and states it helped some. Patient denies any prior cardiac disease no known pulmonary disease. Denies any leg pain or leg swelling. No abdominal pain. Denies any chance . - Related Data Home Medications Medication Instructions Recorded Confirmed ALPRAZolam [Xanax] 0.25 mg PO TID PRN 11/20/19 11/20/19 Previous Rx's Medication Instructions Recorded Ondansetron Odt [Zofran Odt] 4 mg PO Q8HR PRN #10 tab 11/20/19 Allergies Allergy/AdvReac Type Severity Reaction Status Date / Time meperidine HCl [From Demerol] Allergy Vomiting Verified 11/20/19 07:00 sulfamethoxazole AdvReac Rash/Hives Verified 11/20/19 07:04 [From Bactrim] trimethoprim [From Bactrim] AdvReac Rash/Hives Verified 11/20/19 07:04 Review of Systems ROS Statement: Those systems with pertinent positive or pertinent negative responses have been documented in the HPI. ROS Other: All systems not noted in ROS Statement are negative. Past Medical History Past Medical History: Thyroid Disorder Additional Past Medical History / Comment(s): migraines, IBS, thyroid multinodular goiter, euthyroid History of Any Multi-Drug Resistant Organisms: None Reported Past Surgical History: Section, Orthopedic Surgery, Tubal Ligation, Uterine Ablation Additional Past Surgical History / Comment(s): surgery lt ankle, wisdom teeth,lt wrist cyst removal. colonoscopy Past Anesthesia/Blood Transfusion Reactions: No Reported Reaction Past Psychological History: Anxiety Smoking Status: Former smoker Past Alcohol Use History: Occasional Past Drug Use History: Marijuana - Past Family History Brother(s) Family Medical History: Cancer, Thyroid Disorder Additional Family Medical History / Comment(s): testicular Mother Family Medical History: Diabetes Mellitus, Thyroid Disorder General Exam Limitations: no limitations General appearance: alert, in no apparent distress, anxious Head exam: Present: atraumatic, normocephalic, normal inspection Eye exam: Present: normal appearance, PERRL, EOMI. Absent: scleral icterus, conjunctival injection, periorbital swelling ENT exam: Present: normal exam, normal oropharynx, mucous membranes moist Neck exam: Present: normal inspection, full ROM. Absent: tenderness, meningismus, lymphadenopathy Respiratory exam: Present: normal lung sounds bilaterally. Absent: respiratory distress, wheezes, rales, rhonchi, stridor Cardiovascular Exam: Present: normal rhythm, tachycardia, normal heart sounds. Absent: systolic murmur, diastolic murmur, rubs, gallop, clicks GI/Abdominal exam: Present: soft, normal bowel sounds. Absent: distended, tenderness, guarding, rebound, rigid Neurological exam: Present: alert, oriented X3, CN II-XII intact, reflexes normal. Absent: motor sensory deficit Psychiatric exam: Present: anxious Skin exam: Present: warm, dry, intact, normal color. Absent: rash Course Vital Signs 11/20/19 11/20/19 11/20/19 06:17 06:49 08:40 Temperature 98.1 F Pulse Rate 105 H 87 Pulse Rate [ 104 H Pulse Oximetery ] Respiratory 18 18 Rate Blood Pressure 132/65 105/72 O2 Sat by Pulse 100 98 Oximetry EKG Findings - EKG Comments: EKG Findings:: EKG performed at 6:31 normal sinus rhythm with incomplete right bundle, rate of 100. pr 126 QRS 112 QT/QTC 356/459 Medical Decision Making - Medical Decision Making 34-year-old female presented emergency department for palpitations, nausea vomiting. Symptoms started after discontinuing drug use. Patient symptoms are related to her withdrawal. Patient is slightly stable. Patient responded well to anxiolytics. Labs including d-dimer, troponin, TSH CBC and comp were all within normal limits. Patient we discharged in stable condition with follow-up. Return parameters were discussed. - Lab Data Result diagrams: 11/20/19 06:30 11/20/19 06:30 Lab Results 11/20/19 11/20/19 11/20/19 Range/Units 06:30 06:30 06:30 WBC 9.4 (3.8-10.6) k/uL RBC 4.61 (3.80-5.40) m/uL Hgb 14.1 (11.4-16.0) gm/dL Hct 43.9 (34.0-46.0) % MCV 95.3 (80.0-100.0) fL MCH 30.6 (25.0-35.0) pg MCHC 32.1 (31.0-37.0) g/dL RDW 12.3 (11.5-15.5) % Plt Count 227 (150-450) k/uL Neutrophils % 79 % Lymphocytes % 16 % Monocytes % 3 % Eosinophils % 1 % Basophils % 0 % Neutrophils # 7.4 (1.3-7.7) k/uL Lymphocytes # 1.5 (1.0-4.8) k/uL Monocytes # 0.3 (0-1.0) k/uL Eosinophils # 0.1 (0-0.7) k/uL Basophils # 0.0 (0-0.2) k/uL PT 10.3 (9.0-12.0) sec INR 1.0 (<1.2) APTT 21.2 L (22.0-30.0) sec D-Dimer (<0.60) mg/L FEU Sodium 138 (137-145) mmol/L Potassium 3.5 (3.5-5.1) mmol/L Chloride 102 (98-107) mmol/L Carbon Dioxide 23 (22-30) mmol/L Anion Gap 13 mmol/L BUN 9 (7-17) mg/dL Creatinine 0.63 (0.52-1.04) mg/dL Est GFR (CKD-EPI)AfAm >90 (>60 ml/min/1.73 sqM) Est GFR (CKD-EPI)NonAf >90 (>60 ml/min/1.73 sqM) Glucose 116 H (74-99) mg/dL Calcium 10.0 (8.4-10.2) mg/dL Magnesium 1.7 (1.6-2.3) mg/dL Total Bilirubin 0.6 (0.2-1.3) mg/dL AST 21 (14-36) U/L ALT 12 (4-34) U/L Alkaline Phosphatase 58 (38-126) U/L Troponin I (0.000-0.034) ng/mL Total Protein 8.6 H (6.3-8.2) g/dL Albumin 5.2 H (3.5-5.0) g/dL TSH 1.040 (0.465-4.680) mIU/L 11/20/19 11/20/19 Range/Units 06:30 06:30 WBC (3.8-10.6) k/uL RBC (3.80-5.40) m/uL Hgb (11.4-16.0) gm/dL Hct (34.0-46.0) % MCV (80.0-100.0) fL MCH (25.0-35.0) pg MCHC (31.0-37.0) g/dL RDW (11.5-15.5) % Plt Count (150-450) k/uL Neutrophils % % Lymphocytes % % Monocytes % % Eosinophils % % Basophils % % Neutrophils # (1.3-7.7) k/uL Lymphocytes # (1.0-4.8) k/uL Monocytes # (0-1.0) k/uL Eosinophils # (0-0.7) k/uL Basophils # (0-0.2) k/uL PT (9.0-12.0) sec INR (<1.2) APTT (22.0-30.0) sec D-Dimer <0.17 (<0.60) mg/L FEU Sodium (137-145) mmol/L Potassium (3.5-5.1) mmol/L Chloride (98-107) mmol/L Carbon Dioxide (22-30) mmol/L Anion Gap mmol/L BUN (7-17) mg/dL Creatinine (0.52-1.04) mg/dL Est GFR (CKD-EPI)AfAm (>60 ml/min/1.73 sqM) Est GFR (CKD-EPI)NonAf (>60 ml/min/1.73 sqM) Glucose (74-99) mg/dL Calcium (8.4-10.2) mg/dL Magnesium (1.6-2.3) mg/dL Total Bilirubin (0.2-1.3) mg/dL AST (14-36) U/L ALT (4-34) U/L Alkaline Phosphatase (38-126) U/L Troponin I <0.012 (0.000-0.034) ng/mL Total Protein (6.3-8.2) g/dL Albumin (3.5-5.0) g/dL TSH (0.465-4.680) mIU/L Disposition Clinical Impression: Palpitations Disposition: HOME SELF-CARE Condition: Stable Instructions (If sedation given, give patient instructions): Heart Palpitations (ED) Additional Instructions: Please return to the Emergency Department if symptoms worsen or any other concerns. Prescriptions: Ondansetron Odt [Zofran Odt] 4 mg PO Q8HR PRN #10 tab PRN Reason: Nausea Is patient prescribed a controlled substance at d/c from ED?: No Referrals: Sunny Quintero MD [Primary Care Provider] - 1-2 days Time of Disposition: 08:50
[2019-11-20 06:52] LABS: Basophils % (A) 0 %; Eosinophils # (A) 0.1 k/uL (0-0.7); Eosinophils % (A) 1 %; HCT 43.9 % (34.0-46.0); HGB 14.1 gm/dL (11.4-16.0); Lymphocytes # (A) 1.5 k/uL (1.0-4.8); Lymphocytes % (A) 16 %; MCH 30.6 pg (25.0-35.0); MCHC 32.1 g/dL (31.0-37.0); MCV 95.3 fL (80.0-100.0); Monocytes # (A) 0.3 k/uL (0-1.0); Monocytes % (A) 3 %; Neutrophils # (A) 7.4 k/uL (1.3-7.7); Neutrophils % (A) 79 %; Platelet Count 227 k/uL (150-450); RBC 4.61 m/uL (3.80-5.40); RDW 12.3 % (11.5-15.5); WBC 9.4 k/uL (3.8-10.6)
[2019-11-20 07:03] LABS: Glucose 116 mg/dL (74-99); Potassium 3.5 mmol/L (3.5-5.1); Sodium 138 mmol/L (137-145)
[2019-11-20 07:04] LABS: ALT 12 U/L (4-34); AST 21 U/L (14-36); African American GFR (CKD) >90 (>60 ml/min/1.73 sqM); Albumin 5.2 g/dL (3.5-5.0); Alkaline Phosphatase 58 U/L (38-126); Anion Gap 13 mmol/L; Blood Urea Nitrogen 9 mg/dL (7-17); Carbon Dioxide 23 mmol/L (22-30); Chloride 102 mmol/L (98-107); Magnesium 1.7 mg/dL (1.6-2.3); Non-African American GFR(CKD) >90 (>60 ml/min/1.73 sqM); Total Bilirubin 0.6 mg/dL (0.2-1.3); Total Protein 8.6 g/dL (6.3-8.2)
[2019-11-20 07:11] LABS: Prothrombin Time 10.3 sec (9.0-12.0)
--- NOTE | 2019-11-20 07:17 | XR ---
EXAMINATION TYPE: XR chest 2V DATE OF EXAM: 11/20/2019 COMPARISON: None HISTORY: 34-year-old female with dysrhythmia TECHNIQUE: PA and lateral views FINDINGS: The cardiomediastinal silhouette, aorta, and pulmonary vasculature are within normal limits. Lungs an d pleural spaces are clear. IMPRESSION: No acute cardiopulmonary process.
[2019-11-20 07:30] LABS: Partial Thromboplastin Time 21.2 sec (22.0-30.0)
[2019-11-20] MEDS ORDERED: SODIUM CHLORIDE 0.9% 1,000 ML IV ONE (07:36)
[2019-11-20 08:41] VITALS: BP 105/72; PULSE 87
== END 2019-11-20 09:01 | disposition home or self-care (01) ==
LOC: EC 06:14
DX: R00.2 Palpitations (principal); R00.0 Tachycardia, unspecified; R11.2 Nausea with vomiting, unspecified; F19.939 Other psychoactive substance use, unspecified with withdrawal, unspecified; Z87.891 Personal history of nicotine dependence; Z88.5 Allergy status to narcotic agent; Z88.2 Allergy status to sulfonamides; Z88.1 Allergy status to other antibiotic agents
CPT/HCPCS: 36415; 93005; 85379; 80053; 84443; 83735; 84484; 85025; 85610; 85730; 71046; 99285; 96374; 96375; 96376; J2060; J2405

== ENCOUNTER → 2020-10-13 | Outpatient (CLI) | payer OTHER ==
--- NOTE | 2020-10-13 14:35 | MM ---
Reason for exam: screening (asymptomatic). Baseline mammogram. History: Family history of breast cancer in maternal grandmother and breast cancer in paternal grandmother. Took hormonal contraceptives for 15 years beginning at age 15. Physical Findings: Nurse did not find any significant physical abnormalities on exam. MG Screening Mammo w CAD Bilateral CC and MLO view(s) were taken. The breast tissue is heterogeneously dense. This may lower the sensitivity of mammography. There is no discrete abnormality. These results were verbally communicated with the patient and result sheet given to the patient on 10/13/20. ASSESSMENT: Negative, BI-RAD 1 RECOMMENDATION: Routine screening mammogram of both breasts at age 40.
== END | disposition home or self-care (01) ==
LOC: RADMAMWWP 13:00
PROVIDERS: ATTEND Obstetrics & Gynecology
DX: Z12.31 Encounter for screening mammogram for malignant neoplasm of breast (principal); Z80.3 Family history of malignant neoplasm of breast
CPT/HCPCS: 77067

== ENCOUNTER → 2021-08-22 | Outpatient (CLI) | payer OTHER ==
--- NOTE | 2021-08-23 06:59 | US ---
EXAMINATION TYPE: US thyroid st tissue head/neck DATE OF EXAM: 08/22/2021 COMPARISON: US 2018 CLINICAL HISTORY: N04.1 NONTOXIC SINGLE THYROID NODULE. Thyroid nodules GLAND SIZE: Right Lobe: 6.1 x 1.3 x 2.2 cm Overall Parenchyma: homogenous Left Lobe: 6.0 x 1.3 x 2.0 cm Overall Parenchyma: homogeneous Isthmus Thickness: 0.2 cm NODULES RIGHT: # of nodules measured on right: 1 1. 1.2 X 0.5 x 1.1 cm, upper lateral, solid or almost completely solid, hypoechoic nodule, which is wider than tall, with smooth margins, without echogenic foci. Prior size: 1.0 x 1.0 x 0.6 cm LEFT: # of nodules measured on left: 0 ISTHMUS: # of nodules measured in the isthmus: 0 Bilateral neck scanned, no evidence of lymphadenopathy. IMPRESSION: 1. Thyroidomegaly. 2. Stable predominantly solid nodule right thyroid lobe. The need to biopsy should be made on a clini ruddy basis.
== END | disposition home or self-care (01) ==
LOC: RADUSWWP 16:47
PROVIDERS: ATTEND Family Medicine
DX: E04.1 Nontoxic single thyroid nodule (principal)
CPT/HCPCS: 76536